=== PATIENT | female | born 1940 | race Caucasian/White ===

== ENCOUNTER → 2018-01-26 | Outpatient (CLI) | payer MEDICARE | LOC: COL.CARD 10:06 | DX: R29.6 Repeated falls (principal); I10 Essential (primary) hypertension; I48.91 Unspecified atrial fibrillation ==

== ENCOUNTER 2018-06-19 13:09 | Inpatient (IN) | payer MEDICARE ==
[~2018-06-19] VITALS: Ht 149.9 cm; Wt 74.5 kg
[2018-06-19] MEDS ORDERED: ELIQUIS 2.5 PO (13:43)
[2018-06-19] MEDS ORDERED: LASIX 20MG TABL20 MG PO (13:43)
[2018-06-19] MEDS ORDERED: EVISTA 60MG60 MG/TAB PO (13:44)
[2018-06-19] MEDS ORDERED: ZESTRIL 20MG TA20 MG PO (13:44)
[2018-06-19] MEDS ORDERED: NORCO 325 MG-51 TAB PO (13:44)
[2018-06-19] MEDS ORDERED: TOPROL XL100 MG PO (13:45)
[2018-06-19] MEDS ORDERED: ASPIRIN 81M81 MG/TA2 PO (13:45)
[2018-06-19] MEDS ORDERED: K-DUR20 MEQ PO (13:46)
[2018-06-19] MEDS ORDERED: CLARITIN 1010 MG/TAB PO (13:46)
[2018-06-19] MEDS ORDERED: MASON NATURAL1200 MG PO (13:46)
[2018-06-19 13:56] LABS: ALBUMIN 4.1 gm/dL (3.5-5.0); BILIRUBIN,TOTAL 0.6 mg/dL (0.0-1.0); CALCIUM 9.1 mg/dL (8.4-10.2); CREATININE, serum 0.68 mg/dL (0.52-1.25); POTASSIUM 3.5 mmol/L (3.4-5.0); TOTAL PROTEIN 7.2 gm/dL (6.4-8.2)
[2018-06-19 14:00] LABS: BASO % 0.4 % (0.0-2.0); EOS # 0.1 (0.0-0.7); EOS % 1.1 % (0-4.0); GRAN # 6.6 (1.4-6.5); GRAN % 73.7 % (42.2-75.2); HEMATOCRIT 37.5 % (37.0-47.0); HEMOGLOBIN 12.4 g/dl (12.5-16.0); LYMPH # 1.4 (1.2-3.4); LYMPH % 15.6 % (20.0-51.0); MEAN CELL VOLUME 97 fl (80.0-100.0); MEAN CORPUSCULAR HEMOGLOBIN 32 pg (27.0-31.0); MEAN CORPUSCULAR HGB CONC 33 g/dl (33.0-37.0); MONO # 0.7 (0.1-0.6); MONO % 8.2 % (1.7-9.3); PLATELET COUNT 192 K/mm3 (130-400); RED BLOOD COUNT 3.88 M/mm3 (4.10-5.30); REDCELL DISTRIBUTION WIDTH-CV 13.3 % (11.5-14.5)
[2018-06-19 14:06] LABS: COLLECTION METHOD CATHETER
[2018-06-19 14:13] LABS: PH 7 (5-8); SQUAMOUS EPITHELIAL None Seen /hpf; URINE APPEARANCE Clear; URINE BACTERIA None Seen /hpf; URINE BILIRUBIN Negative (NEGATIVE); URINE BLOOD Negative (NEGATIVE); URINE COLOR Yellow; URINE GLUCOSE Negative (NEGATIVE); URINE KETONE Negative (NEGATIVE); URINE LEUKOCYTE ESTERASE Negative (NEGATIVE); URINE NITRATE Negative (NEGATIVE); URINE PROTEIN(semi-quant) Negative (NEGATIVE); URINE UROBILINOGEN Negative (NEGATIVE)
[2018-06-19] MEDS ORDERED: MULTI VITAMINS1 TAB PO (14:47)
[2018-06-19 16:12] VITALS: BP 152/84; PULSE 120; TEMP 98.3
[2018-06-19 17:48] LABS: INR 1.1 (0.8-3.0); PROTHROMBIN TIME 12.3 SECONDS (9.7-12.8)
[2018-06-19 18:18] VITALS: BP 152/84; PULSE 122; TEMP 97.6
[2018-06-19 20:00] VITALS: BP 136/72; PULSE 106; TEMP 98.4
[2018-06-20] VITALS (8 sets, daily range): BP systolic 118–152; BP diastolic 56–88; PULSE 90–140; TEMP 98.4–99
[2018-06-20 08:35] LABS: BASO # 0.1 (0.0-0.2); BASO % 0.5 % (0.0-2.0); EOS # 0.1 (0.0-0.7); EOS % 0.9 % (0-4.0); GRAN # 10.9 (1.4-6.5); GRAN % 84.6 % (42.2-75.2); HEMATOCRIT 33.1 % (37.0-47.0); HEMOGLOBIN 11.1 g/dl (12.5-16.0); LYMPH # 0.8 (1.2-3.4); LYMPH % 6.5 % (20.0-51.0); MEAN CELL VOLUME 95 fl (80.0-100.0); MEAN CORPUSCULAR HEMOGLOBIN 32 pg (27.0-31.0); MEAN CORPUSCULAR HGB CONC 34 g/dl (33.0-37.0); MEAN PLATELET VOLUME 9.3 fl (7.4-10.4); MONO # 0.9 (0.1-0.6); MONO % 7.1 % (1.7-9.3); PLATELET COUNT 171 K/mm3 (130-400); RED BLOOD COUNT 3.47 M/mm3 (4.10-5.30); REDCELL DISTRIBUTION WIDTH-CV 12.9 % (11.5-14.5)
[2018-06-20 08:47] LABS: CALCIUM 8.6 mg/dL (8.4-10.2); CREATININE, serum 0.58 mg/dL (0.52-1.25); POTASSIUM 3.5 mmol/L (3.4-5.0)
[2018-06-21] VITALS (12 sets, daily range): BP systolic 82–137; BP diastolic 46–84; PULSE 88–121; TEMP 97.6–100.5
[2018-06-21 08:53] LABS: BASO # 0.1 (0.0-0.2); BASO % 0.3 % (0.0-2.0); EOS # 0.3 (0.0-0.7); EOS % 2.2 % (0-4.0); GRAN # 11.2 (1.4-6.5); GRAN % 78.4 % (42.2-75.2); HEMOGLOBIN 11.3 g/dl (12.5-16.0); LYMPH # 1.3 (1.2-3.4); MEAN CELL VOLUME 96 fl (80.0-100.0); MEAN CORPUSCULAR HEMOGLOBIN 32 pg (27.0-31.0); MEAN CORPUSCULAR HGB CONC 33 g/dl (33.0-37.0); MEAN PLATELET VOLUME 9.7 fl (7.4-10.4); MONO # 1.4 (0.1-0.6); MONO % 9.5 % (1.7-9.3); PLATELET COUNT 162 K/mm3 (130-400); RED BLOOD COUNT 3.53 M/mm3 (4.10-5.30); REDCELL DISTRIBUTION WIDTH-CV 13.1 % (11.5-14.5)
[2018-06-21 08:54] LABS: HEMATOCRIT 33.8 % (37.0-47.0)
[2018-06-21 09:02] LABS: CALCIUM 8.4 mg/dL (8.4-10.2); CREATININE, serum 0.68 mg/dL (0.52-1.25); POTASSIUM 3.3 mmol/L (3.4-5.0)
[2018-06-21 19:40] LABS: COLLECTION METHOD CATHETER
[2018-06-21 19:54] LABS: PH 5 (5-8); SQUAMOUS EPITHELIAL 0-2 /hpf; URINE APPEARANCE Hazy; URINE BACTERIA None Seen /hpf; URINE BILIRUBIN Negative (NEGATIVE); URINE BLOOD 3+ (NEGATIVE); URINE COLOR Amber; URINE GLUCOSE Negative (NEGATIVE); URINE KETONE Negative (NEGATIVE); URINE LEUKOCYTE ESTERASE 2+ (NEGATIVE); URINE NITRATE Negative (NEGATIVE); URINE PROTEIN(semi-quant) 2+ (NEGATIVE); URINE RBC >50 /hpf; URINE UROBILINOGEN Negative (NEGATIVE)
[2018-06-22] VITALS: BP 102/54; PULSE 114; TEMP 98.7
[2018-06-22 04:00] VITALS: BP 108/56; PULSE 108; TEMP 98.2
[2018-06-22 06:56] LABS: BASO # 0.1 (0.0-0.2); BASO % 0.4 % (0.0-2.0); EOS # 0.6 (0.0-0.7); EOS % 4.4 % (0-4.0); GRAN # 10.9 (1.4-6.5); GRAN % 77.4 % (42.2-75.2); HEMATOCRIT 25.3 % (37.0-47.0); HEMOGLOBIN 8.4 g/dl (12.5-16.0); LYMPH # 1.4 (1.2-3.4); LYMPH % 9.9 % (20.0-51.0); MEAN CELL VOLUME 97 fl (80.0-100.0); MEAN CORPUSCULAR HEMOGLOBIN 32 pg (27.0-31.0); MEAN CORPUSCULAR HGB CONC 33 g/dl (33.0-37.0); MEAN PLATELET VOLUME 9.8 fl (7.4-10.4); MONO % 7.2 % (1.7-9.3); PLATELET COUNT 118 K/mm3 (130-400); RED BLOOD COUNT 2.62 M/mm3 (4.10-5.30)
[2018-06-22 07:18] LABS: CALCIUM 7.5 mg/dL (8.4-10.2); CREATININE, serum 0.84 mg/dL (0.52-1.25); POTASSIUM 3.8 mmol/L (3.4-5.0)
[2018-06-22 08:00] VITALS: BP 96/56; PULSE 101; TEMP 99.2
[2018-06-22 12:00] VITALS: BP 103/51; PULSE 101; TEMP 98.8
[2018-06-22 16:20] VITALS: BP 93/48; PULSE 102; TEMP 99.8
[2018-06-22 20:48] VITALS: BP 137/69; PULSE 126; TEMP 100.3
[2018-06-23 00:28] VITALS: BP 101/54; PULSE 106; TEMP 99
[2018-06-23 03:31] VITALS: BP 114/62; PULSE 98; TEMP 97.6
[2018-06-23 08:18] LABS: BASO # 0.1 (0.0-0.2); BASO % 0.4 % (0.0-2.0); EOS # 0.4 (0.0-0.7); EOS % 3.3 % (0-4.0); GRAN # 9.2 (1.4-6.5); GRAN % 72.1 % (42.2-75.2); LYMPH # 1.8 (1.2-3.4); MEAN CELL VOLUME 98 fl (80.0-100.0); MEAN CORPUSCULAR HGB CONC 33 g/dl (33.0-37.0); MEAN PLATELET VOLUME 10.8 fl (7.4-10.4); MONO # 1.2 (0.1-0.6); MONO % 9.5 % (1.7-9.3); PLATELET COUNT 135 K/mm3 (130-400); RED BLOOD COUNT 2.49 M/mm3 (4.10-5.30); REDCELL DISTRIBUTION WIDTH-CV 13.2 % (11.5-14.5)
[2018-06-23 08:19] LABS: HEMATOCRIT 24.3 % (37.0-47.0); HEMOGLOBIN 7.9 g/dl (12.5-16.0); MEAN CORPUSCULAR HEMOGLOBIN 32 pg (27.0-31.0)
[2018-06-23 08:29] LABS: CALCIUM 7.9 mg/dL (8.4-10.2); CREATININE, serum 0.77 mg/dL (0.52-1.25); POTASSIUM 3.8 mmol/L (3.4-5.0)
[2018-06-23 13:39] VITALS: BP 127/69; PULSE 99; TEMP 98.3
[2018-06-23 15:51] VITALS: BP 114/53; PULSE 95; TEMP 97.9
[2018-06-23 21:24] VITALS: BP 113/52; PULSE 98; TEMP 99.1
[2018-06-23 23:04] VITALS: BP 121/90; PULSE 100; TEMP 98.5
[2018-06-24] VITALS (10 sets, daily range): BP systolic 105–141; BP diastolic 53–82; PULSE 86–106; TEMP 97.9–99.2
[2018-06-24 06:39] LABS: BASO % 0.3 % (0.0-2.0); EOS # 0.4 (0.0-0.7); EOS % 3.3 % (0-4.0); GRAN # 8.7 (1.4-6.5); GRAN % 72.5 % (42.2-75.2); HEMATOCRIT 22.8 % (37.0-47.0); HEMOGLOBIN 7.6 g/dl (12.5-16.0); LYMPH # 1.5 (1.2-3.4); LYMPH % 12.2 % (20.0-51.0); MEAN CELL VOLUME 95 fl (80.0-100.0); MEAN CORPUSCULAR HEMOGLOBIN 32 pg (27.0-31.0); MEAN CORPUSCULAR HGB CONC 33 g/dl (33.0-37.0); MEAN PLATELET VOLUME 10.6 fl (7.4-10.4); MONO # 1.3 (0.1-0.6); PLATELET COUNT 164 K/mm3 (130-400); REDCELL DISTRIBUTION WIDTH-CV 12.7 % (11.5-14.5)
[2018-06-24 06:53] LABS: CALCIUM 7.8 mg/dL (8.4-10.2); CREATININE, serum 0.6 mg/dL (0.52-1.25); MAGNESIUM 1.6 mg/dL (1.6-2.3)
[2018-06-24 17:38] LABS: HEMATOCRIT 29.4 % (37.0-47.0)
[2018-06-25] VITALS: BP 121/75; PULSE 76; TEMP 97.5
[2018-06-25 05:29] VITALS: BP 128/64; PULSE 89; TEMP 98.9
[2018-06-25 07:32] LABS: BASO # 0.1 (0.0-0.2); BASO % 0.4 % (0.0-2.0); EOS # 0.4 (0.0-0.7); EOS % 3.4 % (0-4.0); GRAN # 8.7 (1.4-6.5); GRAN % 73.8 % (42.2-75.2); LYMPH # 1.2 (1.2-3.4); MEAN CELL VOLUME 94 fl (80.0-100.0); MEAN CORPUSCULAR HGB CONC 34 g/dl (33.0-37.0); MEAN PLATELET VOLUME 10.2 fl (7.4-10.4); MONO # 1.3 (0.1-0.6); MONO % 11.1 % (1.7-9.3); PLATELET COUNT 197 K/mm3 (130-400); RED BLOOD COUNT 2.77 M/mm3 (4.10-5.30); REDCELL DISTRIBUTION WIDTH-CV 14.4 % (11.5-14.5)
[2018-06-25 07:33] LABS: HEMATOCRIT 25.9 % (37.0-47.0); HEMOGLOBIN 8.7 g/dl (12.5-16.0); MEAN CORPUSCULAR HEMOGLOBIN 31 pg (27.0-31.0)
[2018-06-25 07:46] LABS: CALCIUM 8.1 mg/dL (8.4-10.2); CREATININE, serum 0.57 mg/dL (0.52-1.25)
[2018-06-25 08:24] VITALS: BP 122/72; PULSE 95; TEMP 98.5
[2018-06-25 12:34] VITALS: BP 116/60; PULSE 97; TEMP 98.9
[2018-06-25 16:02] LABS: OSMOLALITY-URINE random 579 Osm/kg (50-1200)
[2018-06-25 16:11] VITALS: BP 111/65; PULSE 106; TEMP 97.7
[2018-06-25 20:00] VITALS: BP 128/80; PULSE 107; TEMP 99.2
[2018-06-25 23:27] LABS: CALCIUM 7.9 mg/dL (8.4-10.2); CREATININE, serum 0.56 mg/dL (0.52-1.25); POTASSIUM 4.1 mmol/L (3.4-5.0)
[2018-06-26] VITALS: BP 134/85; PULSE 102; TEMP 99.7
[2018-06-26 04:56] LABS: CALCIUM 7.8 mg/dL (8.4-10.2); CREATININE, serum 0.58 mg/dL (0.52-1.25); POTASSIUM 3.9 mmol/L (3.4-5.0)
[2018-06-26 05:15] VITALS: BP 126/83; PULSE 93; TEMP 97.9
[2018-06-26 08:00] VITALS: BP 130/64; PULSE 89; TEMP 98.2
[2018-06-26 08:20] LABS: BASO # 0.1 (0.0-0.2); BASO % 0.4 % (0.0-2.0); EOS # 0.5 (0.0-0.7); EOS % 3.9 % (0-4.0); GRAN # 9.8 (1.4-6.5); GRAN % 71.1 % (42.2-75.2); LYMPH # 1.8 (1.2-3.4); LYMPH % 12.7 % (20.0-51.0); MEAN CELL VOLUME 93 fl (80.0-100.0); MEAN CORPUSCULAR HGB CONC 34 g/dl (33.0-37.0); MEAN PLATELET VOLUME 10.6 fl (7.4-10.4); MONO # 1.4 (0.1-0.6); MONO % 10.1 % (1.7-9.3); PLATELET COUNT 221 K/mm3 (130-400); RED BLOOD COUNT 2.56 M/mm3 (4.10-5.30); REDCELL DISTRIBUTION WIDTH-CV 14.2 % (11.5-14.5)
[2018-06-26 08:23] LABS: HEMATOCRIT 23.8 % (37.0-47.0); MEAN CORPUSCULAR HEMOGLOBIN 31 pg (27.0-31.0)
[2018-06-26 12:19] VITALS: BP 108/72; PULSE 118; TEMP 98
[2018-06-26 16:34] VITALS: BP 112/69; PULSE 102; TEMP 98.7
[2018-06-26 20:31] VITALS: BP 147/83; PULSE 95; TEMP 98.8
[2018-06-27 00:32] VITALS: BP 151/92; PULSE 92; TEMP 97.5
[2018-06-27 04:54] VITALS: BP 165/84; PULSE 115; TEMP 98.2
[2018-06-27 07:12] LABS: MEAN CELL VOLUME 97 fl (80.0-100.0); MEAN CORPUSCULAR HGB CONC 33 g/dl (33.0-37.0); PLATELET COUNT 278 K/mm3 (130-400); RED BLOOD COUNT 2.75 M/mm3 (4.10-5.30); REDCELL DISTRIBUTION WIDTH-CV 14.5 % (11.5-14.5)
[2018-06-27 07:17] LABS: HEMATOCRIT 26.6 % (37.0-47.0); HEMOGLOBIN 8.7 g/dl (12.5-16.0); MEAN CORPUSCULAR HEMOGLOBIN 32 pg (27.0-31.0)
[2018-06-27 07:18] LABS: CALCIUM 8.2 mg/dL (8.4-10.2); CREATININE, serum 0.52 mg/dL (0.52-1.25); POTASSIUM 4.2 mmol/L (3.4-5.0)
[2018-06-27 08:23] VITALS: BP 131/69; PULSE 100; TEMP 98
[2018-06-27 09:38] LABS: BAND 4 % (0-10); BASOPHIL 1 % (0-2); LYMPHOCYTE 8 % (20.0-51.0); NEUTROPHILS 84 % (42.0-75.2); PLATELET ESTIMATE NORMAL (NORMAL)
[2018-06-27 12:51] VITALS: BP 143/87; PULSE 89; TEMP 98.2
[2018-06-27 15:57] VITALS: BP 131/79; PULSE 102; TEMP 97.8
[2018-06-27 16:25] LABS: COLLECTION METHOD CLEAN CATCH
[2018-06-27 16:32] LABS: MUCOUS Present /lpf; PH 5 (5-8); URINE APPEARANCE Hazy; URINE BACTERIA Rare /hpf; URINE BILIRUBIN Negative (NEGATIVE); URINE BLOOD Negative (NEGATIVE); URINE COLOR Amber; URINE GLUCOSE Negative (NEGATIVE); URINE KETONE Negative (NEGATIVE); URINE LEUKOCYTE ESTERASE Negative (NEGATIVE); URINE NITRATE Negative (NEGATIVE); URINE PROTEIN(semi-quant) 1+ (NEGATIVE); URINE UROBILINOGEN >=4.0 mg/dL (NEGATIVE)
[2018-06-27 20:25] VITALS: BP 114/64; PULSE 93; TEMP 98.9
[2018-06-28 04:50] VITALS: BP 121/71; PULSE 90; TEMP 97.8
[2018-06-28 07:23] VITALS: BP 152/75; PULSE 93; TEMP 98.2
[2018-06-28 07:32] LABS: MEAN CELL VOLUME 99 fl (80.0-100.0); MEAN CORPUSCULAR HGB CONC 32 g/dl (33.0-37.0); MEAN PLATELET VOLUME 9.5 fl (7.4-10.4); PLATELET COUNT 326 K/mm3 (130-400); RED BLOOD COUNT 2.73 M/mm3 (4.10-5.30); REDCELL DISTRIBUTION WIDTH-CV 14.8 % (11.5-14.5)
[2018-06-28 07:33] LABS: HEMATOCRIT 27.1 % (37.0-47.0); HEMOGLOBIN 8.6 g/dl (12.5-16.0); MEAN CORPUSCULAR HEMOGLOBIN 32 pg (27.0-31.0)
[2018-06-28 07:37] LABS: CALCIUM 8.3 mg/dL (8.4-10.2); CREATININE, serum 0.55 mg/dL (0.52-1.25); POTASSIUM 4.2 mmol/L (3.4-5.0)
[2018-06-28 09:08] LABS: BAND 10 % (0-10); LYMPHOCYTE 15 % (20.0-51.0); NEUTROPHILS 67 % (42.0-75.2); NUCLEATED RED BLOOD CELL 1 (0-6); PLATELET ESTIMATE NORMAL (NORMAL)
[2018-06-28] MEDS ORDERED: IPRATROPIUM BROM3 M1 IH (10:26)
[2018-06-28 12:13] VITALS: BP 152/75; PULSE 93; TEMP 98.2
[2018-06-28] MEDS ORDERED: NORCO 325 MG-51 TAB PO (12:36)
== END 2018-06-28 14:29 | DRG 481 ==
LOC: COL.ER 13:09 → SURG 13:51
PROVIDERS: Family Medicine; Hospitalist; Nurse Practitioner; Nurse Practitioner Family; Orthopaedic Surgery; Physician Assistant
PROC: 0QH706Z Insertion of Intramedullary Internal Fixation Device into Left Upper Femur, Open Approach (ICD-10-PCS; principal; 2018-06-21 08:00)
DX: S72.142A Displaced intertrochanteric fracture of left femur, initial encounter for closed fracture (principal); D62 Acute posthemorrhagic anemia; E87.1 Hypo-osmolality and hyponatremia; E87.3 Alkalosis; N39.0 Urinary tract infection, site not specified; W18.30XA Fall on same level, unspecified, initial encounter; I10 Essential (primary) hypertension; E87.6 Hypokalemia; I48.2 Chronic atrial fibrillation; G47.419 Narcolepsy without cataplexy; Z79.01 Long term (current) use of anticoagulants; B95.2 Enterococcus as the cause of diseases classified elsewhere
CPT/HCPCS: 99232-AI; 99233-AI; 99239; A9284; C1713; J0690; J0696; J0744; J1650; J1885; J1940; J2270; J2704; J3010; J3475; J7030; J7120; P9016

== ENCOUNTER → 2018-08-17 | Outpatient (CLI) | payer MEDICARE ==
[~2018-08-17] MED LIST: ASPIRIN 81M81 MG/TA2 PO; CLARITIN 1010 MG/TAB PO; ELIQUIS 2.5 PO; EVISTA 60MG60 MG/TAB PO; IPRATROPIUM BROM3 M1 IH; K-DUR20 MEQ PO; LASIX 20MG TABL20 MG PO; MASON NATURAL1200 MG PO; MULTI VITAMINS1 TAB PO; NORCO 325 MG-51 TAB PO; TOPROL XL100 MG PO; ZESTRIL 20MG TA20 MG PO
== END ==
LOC: COL.RAD 14:57
DX: S00.83XD Contusion of other part of head, subsequent encounter (principal)

== ENCOUNTER → 2018-08-22 | Outpatient (REF) | LOC: ZCOL.LAB 14:36 | DX: I48.2 Chronic atrial fibrillation (principal) ==

== ENCOUNTER → 2018-09-15 | Outpatient (CLI) | payer MEDICARE ==
[2018-09-15 14:38] LABS: CALCIUM 8.9 mg/dL (8.4-10.2); CREATININE, serum 0.93 mg/dL (0.52-1.25); POTASSIUM 3.5 mmol/L (3.4-5.0)
[2018-09-15 14:41] LABS: DIGOXIN 0.9 ng/mL (0.8-2.0)
== END ==
LOC: ZCOL.LAB 14:00
PROVIDERS: Internal Medicine
DX: I48.2 Chronic atrial fibrillation (principal)

== ENCOUNTER → 2019-03-18 | Outpatient (CLI) | payer MEDICARE ==
[2019-03-18 16:28] LABS: BASO % 0.3 % (0.0-2.0); EOS # 0.1 (0.0-0.7); GRAN # 10.2 (1.4-6.5); GRAN % 76.8 % (42.2-75.2); HEMATOCRIT 37.4 % (37.0-47.0); HEMOGLOBIN 12.2 g/dl (12.5-16.0); LYMPH # 1.9 (1.2-3.4); LYMPH % 14.5 % (20.0-51.0); MEAN CELL VOLUME 97 fl (80.0-100.0); MEAN CORPUSCULAR HEMOGLOBIN 32 pg (27.0-31.0); MEAN CORPUSCULAR HGB CONC 33 g/dl (33.0-37.0); MEAN PLATELET VOLUME 9.9 fl (7.4-10.4); MONO # 0.9 (0.1-0.6); MONO % 6.9 % (1.7-9.3); PLATELET COUNT 258 K/mm3 (130-400); RED BLOOD COUNT 3.85 M/mm3 (4.10-5.30); REDCELL DISTRIBUTION WIDTH-CV 13.3 % (11.5-14.5)
[2019-03-18 16:33] LABS: ALBUMIN 4.2 gm/dL (3.5-5.0); BILIRUBIN,TOTAL 0.4 mg/dL (0.0-1.0); CALCIUM 9.9 mg/dL (8.4-10.2); CREATININE, serum 1.43 (0.52-1.25); POTASSIUM 4.2 mmol/L (3.4-5.0); TOTAL PROTEIN 7.4 gm/dL (6.4-8.2)
[2019-03-18 16:48] LABS: ERYTHROCYTE SEDIMENTATION RATE 22 mm/hr (0-30)
== END ==
LOC: ZCOL.LAB 15:54
PROVIDERS: Nurse Practitioner Family
DX: R63.4 Abnormal weight loss (principal)

== ENCOUNTER 2020-08-21 16:33 | Inpatient (IN) | payer MEDICARE ==
[~2020-08-21] VITALS: Ht 149.9 cm; Wt 60.7 kg
[~2020-08-21 16:33] MED LIST changes: +DAILY MULTIPLE1 T18 PO; -MULTI VITAMINS1 TAB PO
[2020-08-21 17:49] LABS: BASO % 0.3 % (0.0-2.0); EOS # 0.1 (0.0-0.7); EOS % 0.4 % (0-4.0); GRAN # 13.1 (1.4-6.5); GRAN % 83.7 % (42.2-75.2); HEMATOCRIT 38.9 % (37.0-47.0); HEMOGLOBIN 12.6 g/dl (12.5-16.0); LYMPH # 1.5 (1.2-3.4); LYMPH % 9.5 % (20.0-51.0); MEAN CELL VOLUME 98 fl (80.0-100.0); MEAN CORPUSCULAR HEMOGLOBIN 32 pg (27.0-31.0); MEAN CORPUSCULAR HGB CONC 32 g/dl (33.0-37.0); MEAN PLATELET VOLUME 9.4 fl (7.4-10.4); MONO # 0.8 (0.1-0.6); MONO % 4.8 % (1.7-9.3); PLATELET COUNT 219 K/mm3 (130-400); RED BLOOD COUNT 3.97 M/mm3 (4.10-5.30); REDCELL DISTRIBUTION WIDTH-CV 13.2 % (11.5-14.5)
[2020-08-21 17:58] LABS: ALBUMIN 4.5 gm/dL (3.5-5.0); BILIRUBIN,TOTAL 0.5 mg/dL (0.0-1.0); CALCIUM 9.4 mg/dL (8.4-10.2); CREATININE, serum 0.95 (0.52-1.25); POTASSIUM 4.3 mmol/L (3.4-5.0); TOTAL PROTEIN 7.9 gm/dL (6.4-8.2)
[2020-08-21] MEDS ORDERED: NORCO 325 MG-51 TAB PO ×3 (18:14→19:42)
[2020-08-21] MEDS ORDERED: TYLENOL 500MG500 MG PO (19:26)
[2020-08-21] MEDS ORDERED: GENTLE LAXATIVE10 MG RC (19:31)
[2020-08-21] MEDS ORDERED: BLINK TEARS15 ML OP (19:32)
[2020-08-21] MEDS ORDERED: LANOXIN 0.120.125 MG PO (19:34)
[2020-08-21] MEDS ORDERED: ELIQUIS 5MG PO (19:35)
[2020-08-21] MEDS ORDERED: LASIX 40MG TABL40 MG PO (19:37)
[2020-08-21] MEDS ORDERED: ZESTRIL 10MG10 MG PO (19:38)
[2020-08-21 20:04] LABS: TROPONIN-I < 0.012 ng/mL (0.000-0.035)
[2020-08-21 22:18] VITALS: BP 138/94; PULSE 100; TEMP 98.3
[2020-08-22] VITALS (7 sets, daily range): BP systolic 95–145; BP diastolic 38–79; PULSE 69–92; TEMP 97.5–99.1
[2020-08-22] MEDS ORDERED: AQUAPHOR BABY HEA41% TP (02:39)
[2020-08-22] MEDS ORDERED: BETAMETHASONE VA0.1% TP (02:41)
[2020-08-22] MEDS ORDERED: IMODIUM 2MG CAPS2 MG PO (02:44)
[2020-08-22] MEDS ORDERED: GOOD NEIGH1200 MG/15 PO (02:49)
[2020-08-22] MEDS ORDERED: MYLANTA 150 ML150 M1 PO (02:51)
[2020-08-22] MEDS ORDERED: NYSTATIN100000 U/1 TOP (02:54)
[2020-08-22] MEDS ORDERED: REMERON 15M15 MG/TA1 PO (02:56)
[2020-08-22] MEDS ORDERED: ALDACTONE 25MG25 M1 PO (02:57)
[2020-08-22] MEDS ORDERED: SYSTANE BALANCE10 M1 OP (02:59)
[2020-08-22] MEDS ORDERED: ZOFRAN ODT4 MG PO (03:00)
--- NOTE | 2020-08-22 05:05 | NUR ---
Patient admitted from ED via stretcher. Able to stand and ambulate with stand-by assist and a walker. Noted to have a limping, but steady gait. States more pain in left hip than in her right. Patient states her pain is minimal when she is sitting still, but it increases significantly when she gets up to ambulate. Patient denies the need for pain medication so far being on this floor. Edema noted to bilateral lower legs. Patient continues on neuros. Within normal limits. Med rec completed from paperwork sent from susan. 5 page completed. Urine specimen still needed d/t contamination of two voids. Will continue to monitor.
[2020-08-22 05:39] LABS: BASO # 0.1 (0.0-0.2); BASO % 0.3 % (0.0-2.0); EOS # 0.2 (0.0-0.7); EOS % 0.7 % (0-4.0); GRAN # 18.8 (1.4-6.5); GRAN % 86.4 % (42.2-75.2); HEMOGLOBIN 11.4 g/dl (12.5-16.0); LYMPH # 1.5 (1.2-3.4); LYMPH % 6.8 % (20.0-51.0); MEAN CELL VOLUME 98 fl (80.0-100.0); MEAN CORPUSCULAR HEMOGLOBIN 32 pg (27.0-31.0); MEAN CORPUSCULAR HGB CONC 33 g/dl (33.0-37.0); MEAN PLATELET VOLUME 9.7 fl (7.4-10.4); MONO # 1.1 (0.1-0.6); MONO % 5.2 % (1.7-9.3); PLATELET COUNT 202 K/mm3 (130-400); RED BLOOD COUNT 3.55 M/mm3 (4.10-5.30); REDCELL DISTRIBUTION WIDTH-CV 13.4 % (11.5-14.5)
[2020-08-22 05:42] LABS: HEMATOCRIT 34.6 % (37.0-47.0)
[2020-08-22 05:50] LABS: CALCIUM 9.4 mg/dL (8.4-10.2); CREATININE, serum 0.92 (0.52-1.25); POTASSIUM 4.2 mmol/L (3.4-5.0)
[2020-08-22 06:15] LABS: COLLECTION METHOD CATHETER
[2020-08-22 06:54] LABS: MUCOUS Present /lpf; PH 5 (5-8); URINE APPEARANCE Hazy; URINE BACTERIA None Seen /hpf; URINE BILIRUBIN Negative (NEGATIVE); URINE BLOOD 1+ (NEGATIVE); URINE COLOR Yellow; URINE GLUCOSE Negative (NEGATIVE); URINE KETONE Negative (NEGATIVE); URINE LEUKOCYTE ESTERASE Negative (NEGATIVE); URINE NITRATE Negative (NEGATIVE); URINE PROTEIN(semi-quant) 1+ (NEGATIVE); URINE UROBILINOGEN Negative (NEGATIVE)
--- NOTE | 2020-08-22 07:06 | NUR ---
Dr. Rosenbaum notified of critical WBC count. UA collected and sent to lab. Ordered to talk to day shift about possible antibiotics. Reported off to BALBIR Elkins.
--- NOTE | 2020-08-22 07:30 | NUR ---
Shift assessment completed. Patient was ambulating to bathroom with slight dyspnea and had minimal complaints of pain from pelvic fracture. Pt has stable gait with x1 stand by assist.
--- NOTE | 2020-08-22 10:38 | NUR ---
Initial visit; Patient thanked Warehouse Freight Handler for looking in on her and offering comfort and prayer. Warehouse Freight Handler will follow up while patient is here.
--- NOTE | 2020-08-22 10:58 | NUR ---
AGREE WITH STUDENTS ASSESSMENTS OF THIS PATIENT.
--- NOTE | 2020-08-22 16:47 | NUR ---
Social Problems Specialist met with the patient to complete initial intake. The patient lives at [facility] in assisted living. The patient has walker and receives some assistance with ADLs. The patient's PCP is Dr. Pak and patient receives medications from [facility]. The patient has general POA in the EMR. She does not have DPOA-HC in the EMR but states they are complete and designates [facility] in [place]. The patient will likely return to [facility] for a stay at [facility] before returning to assisted living. MIRA faxed referral to Natacha. MIRA contacted Natacha regarding the referral and to inquire about DPOA-HC paperwork. She will fax it if they have it. MIRA collaborated the above information with the patient's nurse.
[2020-08-23 03:22] VITALS: BP 97/79; PULSE 97; TEMP 98.8
--- NOTE | 2020-08-23 04:21 | NUR ---
Patient has rested well throughout the night. Requires assistance x1 staff memeber and walker to ambulate to the bathroom. States her pain is high when she is up walking, but states she is fine when sitting down. Patient denies the need for pain medication. Patient states she prefers to sleep in the recliner because it is more comfortable for her. Medications taken whole with water. Alert and oriented. Noted to have good output. Education provided on the importance of her drinking fluids, as patient states she doesn't want to drink a lot because she doesn't want to get up a lot to use the restroom. Will continue to monitor patient.
[2020-08-23 06:31] LABS: BASO # 0.1 (0.0-0.2); BASO % 0.4 % (0.0-2.0); EOS # 0.3 (0.0-0.7); EOS % 1.2 % (0-4.0); GRAN # 17.8 (1.4-6.5); HEMOGLOBIN 10.6 g/dl (12.5-16.0); LYMPH % 9.1 % (20.0-51.0); MEAN CELL VOLUME 97 fl (80.0-100.0); MEAN CORPUSCULAR HEMOGLOBIN 32 pg (27.0-31.0); MEAN CORPUSCULAR HGB CONC 33 g/dl (33.0-37.0); MEAN PLATELET VOLUME 9.6 fl (7.4-10.4); MONO # 1.2 (0.1-0.6); MONO % 5.7 % (1.7-9.3); PLATELET COUNT 168 K/mm3 (130-400); RED BLOOD COUNT 3.28 M/mm3 (4.10-5.30); REDCELL DISTRIBUTION WIDTH-CV 13.4 % (11.5-14.5)
[2020-08-23 06:45] LABS: CALCIUM 9.2 mg/dL (8.4-10.2); CREATININE, serum 1.22 (0.52-1.25); MAGNESIUM 1.6 mg/dL (1.6-2.3); POTASSIUM 4.5 mmol/L (3.4-5.0)
[2020-08-23 06:53] LABS: HEMATOCRIT 31.7 % (37.0-47.0)
[2020-08-23 07:21] VITALS: BP 107/50; PULSE 89; TEMP 98.5
[2020-08-23 10:53] VITALS: BP 116/56; PULSE 94; TEMP 97.8
--- NOTE | 2020-08-23 11:14 | NUR ---
Security Technician contacted Natacha at [facility] and faxed updates. Natacha advised they are able to accept patient for skilled stay. SW will continue to follow.
--- NOTE | 2020-08-23 13:34 | NUR ---
PT RESTING QUIETLY IN RECLINER DENIES NEEDS.
[2020-08-23 16:23] VITALS: BP 105/46; PULSE 74; TEMP 98.6
[2020-08-23 19:20] VITALS: BP 121/65; PULSE 77; TEMP 98.4
[2020-08-23 23:29] VITALS: BP 113/49; PULSE 78; TEMP 98
[2020-08-24 04:00] VITALS: BP 115/49; PULSE 81; TEMP 97.9
--- NOTE | 2020-08-24 04:49 | NUR ---
Pt is currently sitting up in her chair. This is where pt has slept all night. Pt did state that she slept there for two nights because this position is comfortable for her. Pt has ambulated to the restroom several times tonight. Pt ambulate slow but she does well. Pt is currently back in the chair and has her call light within reach.
[2020-08-24 06:05] LABS: BASO # 0.1 (0.0-0.2); BASO % 0.5 % (0.0-2.0); EOS # 0.5 (0.0-0.7); EOS % 2.5 % (0-4.0); GRAN # 13.6 (1.4-6.5); GRAN % 77.2 % (42.2-75.2); LYMPH # 2.1 (1.2-3.4); MEAN CELL VOLUME 97 fl (80.0-100.0); MEAN CORPUSCULAR HGB CONC 33 g/dl (33.0-37.0); MEAN PLATELET VOLUME 10.1 fl (7.4-10.4); MONO # 1.3 (0.1-0.6); MONO % 7.1 % (1.7-9.3); PLATELET COUNT 145 K/mm3 (130-400); REDCELL DISTRIBUTION WIDTH-CV 13.5 % (11.5-14.5)
[2020-08-24 06:10] LABS: HEMATOCRIT 27.2 % (37.0-47.0); MEAN CORPUSCULAR HEMOGLOBIN 32 pg (27.0-31.0)
--- NOTE | 2020-08-24 06:15 | NUR ---
Pt has had a good night. Pt has ambulated to the restroom several times pt has her call light within reach. She has only requested pain medication once during the night and she stated that the [place] really helped with her pain . Pt has her call light within reach and she is currently in her chair.
[2020-08-24 06:21] LABS: CALCIUM 8.6 mg/dL (8.4-10.2); CREATININE, serum 1.02 (0.52-1.25); POTASSIUM 4.8 mmol/L (3.4-5.0)
[2020-08-24 08:00] VITALS: BP 102/53; PULSE 76; TEMP 98.2
[2020-08-24 10:04] VITALS: BP 102/53; PULSE 76; TEMP 98.2
--- NOTE | 2020-08-24 11:20 | NUR ---
Patient alert and oriented, answers questions appropriately. See assessment. 2+ edema noted to BLE, pulses 1+. Gait slow and steady. No c/o at this time.
[2020-08-24 12:50] VITALS: BP 114/51; PULSE 76; TEMP 98
--- NOTE | 2020-08-24 13:37 | NUR ---
[employer] Division Director faxed clinical updates to Natacha at [facility]. SW will continue to follow.
[2020-08-24 15:49] VITALS: BP 118/72; PULSE 80; TEMP 98.8
[2020-08-24 16:50] LABS: HEMOGLOBIN 8.6 g/dl (12.5-16.0)
[2020-08-24 19:46] VITALS: BP 131/79; PULSE 95; TEMP 97.8
--- NOTE | 2020-08-24 20:30 | NUR ---
PT UP IN CHAIR AT BEDSIDE. DOES NOT WANT LEGS ELEVATED, EVEN THOUGH SHE HAS BILATERAL LOWER LEG SWELLING. HAS RASHY AREA TO LEFT LOWER LEG, BETAMETHASONE CR APPLIED. HAS BRUISE TO ABDOMEN AND ONE SMALL BRUISE TO EACH BUTTOCK CHEEK. IS ALERT AND ORIENTED X4. SL TO LEFT WRIST FLUSHES WELL, BRUISED RT HAND FROM IV AND LAB STICKS.
[2020-08-25 00:04] VITALS: BP 121/65; PULSE 71; TEMP 97.8
--- NOTE | 2020-08-25 00:22 | NUR ---
TO BATHROOM THEN TO BED FOR THE NIGHT.
[2020-08-25 04:00] VITALS: BP 132/52; PULSE 74; TEMP 98.6
--- NOTE | 2020-08-25 05:32 | NUR ---
PT COMPLAINS OF PAIN TO HER BUTTOCKS. MEDICATED WITH NORCO 1 TAB NOW. TRIED REPOSITIONING, SITTING ON PILLOW AND LAYING IN BED TO RELIEVE PAIN.
[2020-08-25 07:15] LABS: BASO # 0.1 (0.0-0.2); BASO % 0.4 % (0.0-2.0); EOS # 0.3 (0.0-0.7); EOS % 1.8 % (0-4.0); GRAN # 13.5 (1.4-6.5); GRAN % 79.1 % (42.2-75.2); LYMPH # 1.9 (1.2-3.4); LYMPH % 11.1 % (20.0-51.0); MEAN CELL VOLUME 99 fl (80.0-100.0); MEAN CORPUSCULAR HGB CONC 33 g/dl (33.0-37.0); MEAN PLATELET VOLUME 10.2 fl (7.4-10.4); MONO # 1.2 (0.1-0.6); MONO % 6.9 % (1.7-9.3); PLATELET COUNT 161 K/mm3 (130-400); RED BLOOD COUNT 2.71 M/mm3 (4.10-5.30); REDCELL DISTRIBUTION WIDTH-CV 13.4 % (11.5-14.5)
[2020-08-25 07:20] LABS: HEMATOCRIT 26.8 % (37.0-47.0); HEMOGLOBIN 8.7 g/dl (12.5-16.0); MEAN CORPUSCULAR HEMOGLOBIN 32 pg (27.0-31.0)
[2020-08-25 07:24] LABS: CALCIUM 8.9 mg/dL (8.4-10.2); CREATININE, serum 0.88 (0.52-1.25); POTASSIUM 4.3 mmol/L (3.4-5.0)
[2020-08-25 07:35] VITALS: BP 103/46; PULSE 75; TEMP 98.7
--- NOTE | 2020-08-25 09:05 | NUR ---
PT UP IN RECLINER AFTER USING BR WITH SBA X1. [place]. NEW ORDERS RECIEVED. PT NOW ON FREE WATER RESTRICTED. TELE DISCONTINUED. PT HAS BEEN APPROVED FOR REHAB TO [facility] . WATCHING WBC PLAN ON DISCHARGE MAYBE TOMORROW.
--- NOTE | 2020-08-25 11:03 | NUR ---
Data Developer met with patient to review discharge plan, which is to discharge to [facility]. Patient is in agreement with this plan. SW was contacted by [facility] and was advised that they have authorized SNF stay for patient (auth #[id number]). MIRA contacted Natacha at [facility] and faxed clinical updates. Patient's COVID test is still pending. SW will continue to follow.
[2020-08-25 12:14] VITALS: BP 103/64; PULSE 64; TEMP 98.7
--- NOTE | 2020-08-25 15:48 | NUR ---
REPORT TO LENA MCGREGOR.
[2020-08-25 16:20] VITALS: BP 111/55; PULSE 82; TEMP 98.5
--- NOTE | 2020-08-25 17:53 | NUR ---
Resumed care after lynsey this afternoon. Patient resting in chair. Was not interested in her dinner tray. We assessed her and noted lower extremity edema and redness, which is chronic. Encouraged patient to elevate lower extremeties, patient declined. Repositioned patient with pillows behind her in chair to make her more comfortable.
--- NOTE | 2020-08-25 20:07 | NUR ---
PT UP IN CHAIR AT BEDSIDE. REPORTS PAIN TO BUTTOCKS, BUT IS UNCOMFORTABLE LAYING IN THE BED. CURRENTLY SITTING ON A PILLOW IN THE CHAIR. ASSISTED TO BATHROOM, VOIDS AND BACK TO CHAIR. TAKES HS MEDS INCLUDING NORCO FOR PAIN. NOTED BRUISING TO LEFT BUTTOCK HAS EXTENDED TO LEFT HIP AND HAS GOTTEN LARGER. ABDOMINAL BRUISING DARK PURPLE AND NOTED BRUISING TO INNER LEFT THIGH. APPLIED BETAMETHASONE OINTMENT TO LEFT LOWER LEG FOR RASHY AREA. REFUSES ALO PALM.
[2020-08-25 20:15] VITALS: BP 144/61; PULSE 82; TEMP 98.5
[2020-08-26] VITALS (7 sets, daily range): BP systolic 115–140; BP diastolic 47–64; PULSE 75–89; TEMP 98.2–98.7
--- NOTE | 2020-08-26 03:44 | NUR ---
Remains up in chair, refuses to have legs elevated. Poor sleep noted.
--- NOTE | 2020-08-26 04:08 | NUR ---
Asking for something for sinus problem, reports nasal passages are dry and has scant blood when blowing nose. ABatulit SHOWER DOORS AND PANELS FABRICATOR orders Craig Nasal spray.
--- NOTE | 2020-08-26 04:50 | NUR ---
MEDICATED WITH NORCO 1 TAB FOR PAIN TO BUTTOCKS. USES OCEAN NASAL SPRAY FOR DRY NARES.
[2020-08-26 07:39] LABS: MEAN CELL VOLUME 96 fl (80.0-100.0); MEAN CORPUSCULAR HGB CONC 33 g/dl (33.0-37.0); MEAN PLATELET VOLUME 10.2 fl (7.4-10.4); PLATELET COUNT 188 K/mm3 (130-400); RED BLOOD COUNT 2.67 M/mm3 (4.10-5.30); REDCELL DISTRIBUTION WIDTH-CV 13.3 % (11.5-14.5)
[2020-08-26 07:43] LABS: HEMATOCRIT 25.7 % (37.0-47.0); HEMOGLOBIN 8.5 g/dl (12.5-16.0); MEAN CORPUSCULAR HEMOGLOBIN 32 pg (27.0-31.0)
[2020-08-26 08:28] LABS: BAND 7 % (0-10); EOSINOPHIL 2 % (0-4); LYMPHOCYTE 13 % (20.0-51.0); NEUTROPHILS 68 % (42.0-75.2); PLATELET ESTIMATE NORMAL (NORMAL)
[2020-08-26 08:46] LABS: CREATININE, serum 0.78 (0.52-1.25); POTASSIUM 4.4 mmol/L (3.4-5.0)
--- NOTE | 2020-08-26 10:57 | NUR ---
SW was informed by nurse and physician team that patient would not be dcing today 08-26-2020. Tentative DC tomorrow 08-27-2020. MIRA contacted [facility] staff to inform about patient states. MIRA will continue to follow.
--- NOTE | 2020-08-26 19:13 | NUR ---
Patient resting in bedside recliner at this time. Patient remains alert and oriented, answers questions appropriately. Patient 1x assist to bathroom, ambulates well with walker and gaitbelt. Patient denies needs at this time, call light within reach.
--- NOTE | 2020-08-26 20:30 | NUR ---
PT IN CHAIR AT BEDSIDE. ASSISTED TO BATHROOM, VOIDS AND BACK TO CHAIR.BRUISING TO LEFT BUTTOCK EXTENDS TO LEFT HIP, LEFT INNER THIGH AND LOWER ABDOMEN. REPORTS PAIN TO BUTTOCK WHEN SITTING, WILL NOT LAY IN THE BED OR ELEVATE HER LEGS IN THE CHAIR. HAS 2+PITTING EDEMA TO LOWER LEGS. RASHY AREA TO LLE, BETAMETHASONE APPLIED BID. HAS LEFT FOOT ORTHO SHOE ON FOR FX 3RD TOE. PT IS ALERT AND ORIENTED. HAS SL TO LEFT WRIST, FLUSHES WELL.
--- NOTE | 2020-08-27 01:28 | NUR ---
MEDICATED WITH NORCO 1 TAB FOR PAIN TO BUTTOCK.
[2020-08-27 03:36] VITALS: BP 107/53; PULSE 110; TEMP 98.1
--- NOTE | 2020-08-27 04:55 | NUR ---
REPORTS PAIN MED TAKES SOME OF THE EDGE OFF THE PAIN IN HER BUTTOCKS.
[2020-08-27 06:45] LABS: MEAN CELL VOLUME 96 fl (80.0-100.0); MEAN CORPUSCULAR HGB CONC 34 g/dl (33.0-37.0); MEAN PLATELET VOLUME 9.9 fl (7.4-10.4); PLATELET COUNT 197 K/mm3 (130-400); RED BLOOD COUNT 2.63 M/mm3 (4.10-5.30); REDCELL DISTRIBUTION WIDTH-CV 13.5 % (11.5-14.5)
[2020-08-27 06:54] LABS: HEMATOCRIT 25.2 % (37.0-47.0); HEMOGLOBIN 8.5 g/dl (12.5-16.0); MEAN CORPUSCULAR HEMOGLOBIN 32 pg (27.0-31.0)
[2020-08-27 06:58] LABS: CALCIUM 8.8 mg/dL (8.4-10.2); CREATININE, serum 0.85 (0.52-1.25); POTASSIUM 4.1 mmol/L (3.4-5.0)
[2020-08-27 09:02] VITALS: BP 114/52; PULSE 84; TEMP 98.1
--- NOTE | 2020-08-27 10:22 | NUR ---
Patient resting in bedside recliner at this time. Patient remains alert and oriented, answers questions appropriately. Patient 1x assist with walker and gaitbelt to and from bathroom, patient is able to preform david care independently. Patient reports that pain is well controlled, bruising on abdomen, buttocks, and legs still present from fall. Patient denies needs at this time, call light within reach.
[2020-08-27 10:26] LABS: BAND 1 % (0-10); LYMPHOCYTE 14 % (20.0-51.0); NEUTROPHILS 81 % (42.0-75.2); PLATELET ESTIMATE NORMAL (NORMAL)
[2020-08-27 12:02] VITALS: BP 116/63; PULSE 67; TEMP 97.8
--- NOTE | 2020-08-27 13:27 | NUR ---
SW contacted surgical station to inquire about patient being discharged today. SW was informed that patient would not be discharged.
[2020-08-27 15:32] VITALS: BP 111/54; PULSE 101; TEMP 98
--- NOTE | 2020-08-27 18:51 | NUR ---
Patient resting in bedside recliner per her prefrence. Patient has been up to bathroom several times today with walker and 1x assist where she was continent of urine. Administered PRN pain medication per patient request, denies needs at this time, call light within reach.
[2020-08-27 19:47] VITALS: BP 115/87; PULSE 82; TEMP 98.3
--- NOTE | 2020-08-27 22:00 | NUR ---
Patient resting in recliner; alert and oriented and in no distress. Offered to assist patient to bed but patient declined. Reported being more "comfortable" sleeping in a chair. Also declined offer to elevate legs despite +3 edema. Explained that this would assist with reducing edema but patient still refused. Call light left within reach; will continue to monitor.
[2020-08-27 23:39] VITALS: BP 123/94; PULSE 73; TEMP 98.6
[2020-08-28 03:44] VITALS: BP 135/71; PULSE 74; TEMP 97.5
[2020-08-28 07:09] LABS: MEAN CELL VOLUME 96 fl (80.0-100.0); MEAN CORPUSCULAR HGB CONC 34 g/dl (33.0-37.0); PLATELET COUNT 239 K/mm3 (130-400); RED BLOOD COUNT 2.79 M/mm3 (4.10-5.30); REDCELL DISTRIBUTION WIDTH-CV 13.6 % (11.5-14.5)
[2020-08-28 07:10] LABS: HEMATOCRIT 26.9 % (37.0-47.0); MEAN CORPUSCULAR HEMOGLOBIN 32 pg (27.0-31.0)
[2020-08-28 07:20] LABS: CALCIUM 9.2 mg/dL (8.4-10.2); CREATININE, serum 0.83 (0.52-1.25); POTASSIUM 4.3 mmol/L (3.4-5.0)
[2020-08-28 07:47] LABS: BAND 3 % (0-10); LYMPHOCYTE 11 % (20.0-51.0); NEUTROPHILS 80 % (42.0-75.2); PLATELET ESTIMATE NORMAL (NORMAL)
[2020-08-28 08:15] VITALS: BP 117/48; PULSE 84; TEMP 97.8
[2020-08-28 11:28] VITALS: BP 98/47; PULSE 79; TEMP 98
[2020-08-28 12:00] LABS: COLLECTION METHOD CATHETER
[2020-08-28 12:16] LABS: PH 5 (5-8); SQUAMOUS EPITHELIAL 0-2 /hpf; URINE APPEARANCE Clear; URINE BACTERIA None Seen /hpf; URINE BILIRUBIN Negative (NEGATIVE); URINE BLOOD Negative (NEGATIVE); URINE COLOR Yellow; URINE GLUCOSE Negative (NEGATIVE); URINE KETONE Negative (NEGATIVE); URINE LEUKOCYTE ESTERASE Negative (NEGATIVE); URINE NITRATE Negative (NEGATIVE); URINE PROTEIN(semi-quant) Negative (NEGATIVE); URINE RBC 0-2 /hpf; URINE UROBILINOGEN Negative (NEGATIVE)
--- NOTE | 2020-08-28 12:18 | NUR ---
First visit from the mortgage closing clerk. No needs right now.
--- NOTE | 2020-08-28 14:01 | NUR ---
Fish Frog Or Oyster Farmer contacted Natacha at [facility] and faxed clinical updates. Natacha advised they would need an updated COVID test as patient's last negative was 08/23/20. SW collaborated with Hospitalist about this request. MIRA also confirmed that patient's DPOA-HC paperwork was placed in patient's chart. SW will continue to follow.
[2020-08-28 15:48] VITALS: BP 107/47; PULSE 71; TEMP 97.7
--- NOTE | 2020-08-28 18:40 | NUR ---
resting in chair, bedside shift report received from BALBIR Chandra
--- NOTE | 2020-08-28 18:49 | NUR ---
Patient resting in bedside recliner at this time. Patient remains alert and oriented. Patient up with x1, walker, and gaitbelt to bathroom several times, continent of urine. Denies needs at this time, call light within reach.
[2020-08-28 19:47] VITALS: BP 113/43; PULSE 66; TEMP 98.8
--- NOTE | 2020-08-28 22:00 | NUR ---
assisted up to bathroom and then back out and into recliner per her request, full assessment completed, see interventions for further info, has purple bruising to right buttocks and down right leg, left jaramillo with scabbing sores, denies needs at this time
[2020-08-28 23:45] VITALS: BP 121/63; PULSE 80; TEMP 98.8
--- NOTE | 2020-08-29 00:58 | NUR ---
remains in chair and this is where she prefers to be, repositioned for comfort
--- NOTE | 2020-08-29 02:37 | NUR ---
in recliner and appears to be dozing now, resp quiet and easy
[2020-08-29 03:18] VITALS: BP 113/39; PULSE 71; TEMP 98.3
--- NOTE | 2020-08-29 04:34 | NUR ---
assisted up to bathroom, c/o pain to pelvis while up and moving, medicated with hydrocodone 5mg 1 tab
[2020-08-29 06:43] LABS: BASO # 0.1 (0.0-0.2); BASO % 0.3 % (0.0-2.0); EOS # 0.2 (0.0-0.7); EOS % 1.2 % (0-4.0); GRAN # 13.8 (1.4-6.5); GRAN % 77.8 % (42.2-75.2); LYMPH % 11.3 % (20.0-51.0); MEAN CELL VOLUME 97 fl (80.0-100.0); MEAN CORPUSCULAR HGB CONC 34 g/dl (33.0-37.0); MEAN PLATELET VOLUME 9.7 fl (7.4-10.4); MONO # 1.5 (0.1-0.6); MONO % 8.3 % (1.7-9.3); PLATELET COUNT 272 K/mm3 (130-400); RED BLOOD COUNT 2.71 M/mm3 (4.10-5.30); REDCELL DISTRIBUTION WIDTH-CV 14.2 % (11.5-14.5)
[2020-08-29 06:44] LABS: HEMATOCRIT 26.3 % (37.0-47.0); HEMOGLOBIN 8.8 g/dl (12.5-16.0); MEAN CORPUSCULAR HEMOGLOBIN 32 pg (27.0-31.0)
[2020-08-29 06:56] LABS: CREATININE, serum 0.94 (0.52-1.25); POTASSIUM 4.1 mmol/L (3.4-5.0)
--- NOTE | 2020-08-29 07:02 | NUR ---
bedside shift report given to BALBIR Castano
[2020-08-29 07:40] VITALS: BP 118/52; PULSE 67; TEMP 97.9
[2020-08-29] MEDS ORDERED: NORCO 325 MG-51 TAB PO (09:03)
--- NOTE | 2020-08-29 10:00 | NUR ---
Patient alert and oriented, answers questions appropriately. See assessment. 2+ edema noted to BLE, pulses palpable. No numbness or tingling reported to BLE. No c/o at this time.
[2020-08-29 11:26] VITALS: BP 117/71; PULSE 78; TEMP 97.9
[2020-08-29 13:10] VITALS: BP 117/71; PULSE 78; TEMP 97.9
[2020-08-29 13:36] VITALS: BP 117/71; PULSE 78; TEMP 97.9
--- NOTE | 2020-08-29 13:40 | NUR ---
Main[place] Strip Inspector attended clinical rounds with the team and patient to discharge today. Patient's second COVID test came back negative. MIRA collaborated with Natacha from [facility] and set transport time for 1400. MIRA faxed discharge orders, clinical updates, and negative COVID results to Natacha. MIRA met with patient to provide transport time. SW read IM form aloud to patient who verbalized understanding and gave SW permission to sign on her behalf. SW placed form in patient's chart and provided copy to patient. No additional needs at this time.
[2020-08-29 13:49] VITALS: BP 117/71; PULSE 78; TEMP 97.9
--- NOTE | 2020-08-29 14:38 | NUR ---
Patient discharged to [facility] via wheelchair with transportation staff. Report called to Justine.
== END 2020-08-29 14:39 | DRG 552 ==
LOC: COL.ER 16:33 → SURG 18:54
PROVIDERS: Family Medicine; Hospitalist; Internal Medicine; Physician Assistant
DX: S32.19XA Other fracture of sacrum, initial encounter for closed fracture (principal); S32.512A Fracture of superior rim of left pubis, initial encounter for closed fracture; E87.2 Acidosis; E87.3 Alkalosis; S36.81XA Injury of peritoneum, initial encounter; E87.1 Hypo-osmolality and hyponatremia; I48.91 Unspecified atrial fibrillation; I10 Essential (primary) hypertension; R35.0 Frequency of micturition; S62.619A Displaced fracture of proximal phalanx of unspecified finger, initial encounter for closed fracture; M19.90 Unspecified osteoarthritis, unspecified site; F32.9 Major depressive disorder, single episode, unspecified; K59.00 Constipation, unspecified; K21.9 Gastro-esophageal reflux disease without esophagitis; W18.30XA Fall on same level, unspecified, initial encounter; D64.9 Anemia, unspecified; M54.2 Cervicalgia; Z79.01 Long term (current) use of anticoagulants; Y93.9 Activity, unspecified
CPT/HCPCS: OP; 99231-AI; 99232-AI; 99239; G0378; J0696; J3010; J3475; J7030; Q9967

== ENCOUNTER 2023-11-18 12:06 | Emergency (ER) | payer MEDICARE ==
[~2023-11-18] VITALS: Ht 149.9 cm; Wt 57.3 kg
[~2023-11-18 12:06] MED LIST changes: +ALDACTONE 25MG25 M1 PO; +AQUAPHOR BABY HEA41% TP; +BETAMETHASONE VA0.1% TP; +BLINK TEARS15 ML OP; +ELIQUIS 5MG PO; +GENTLE LAXATIVE10 MG RC; +GOOD NEIGH1200 MG/15 PO; +IMODIUM 2MG CAPS2 MG PO; +LANOXIN 0.120.125 MG PO; +LASIX 40MG TABL40 MG PO; +MYLANTA 150 ML150 M1 PO; +NYSTATIN100000 U/1 TOP; +REMERON 15M15 MG/TA1 PO; +SYSTANE BALANCE10 M1 OP; +TYLENOL 500MG500 MG PO; +ZESTRIL 10MG10 MG PO; +ZOFRAN ODT4 MG PO
[2023-11-18 12:15] VITALS: TEMP 98
[2023-11-18 13:49] VITALS: BP 136/79; PULSE 85
[2023-11-18] MEDS ORDERED: CEPHALEXIN500 M1 PO (18:03)
== END 2023-11-18 13:49 ==
LOC: COL.ER 12:06
DX: R04.0 Epistaxis (principal); I48.91 Unspecified atrial fibrillation; Z79.01 Long term (current) use of anticoagulants

== ENCOUNTER 2023-11-18 16:47 | Emergency (ER) | payer MEDICARE ==
[~2023-11-18] VITALS: Ht 149.9 cm; Wt 57.3 kg
[2023-11-18 16:49] VITALS: TEMP 97.8
[2023-11-18] MEDS ORDERED: CEPHALEXIN500 M1 PO (18:03)
[2023-11-18 18:18] VITALS: BP 130/72; PULSE 76
== END 2023-11-18 18:23 | disposition home or self-care (01) ==
LOC: COL.ER 16:47
DX: R04.0 Epistaxis (principal); Z79.01 Long term (current) use of anticoagulants

== ENCOUNTER 2023-12-25 13:58 | Emergency (ER) | payer MEDICARE ==
[~2023-12-25] VITALS: Ht 149.9 cm; Wt 55.5 kg
[~2023-12-25 13:58] MED LIST changes: +CEPHALEXIN500 M1 PO
[2023-12-25] MEDS ORDERED: Oxymetazoline 0.05% Nasal Spray 30 ML BOTTLE NS ONE (14:45)
[2023-12-25 15:48] VITALS: BP 102/65; PULSE 88; TEMP 98
== END 2023-12-25 15:18 | disposition home or self-care (01) ==
LOC: COL.ER 13:58
DX: R04.0 Epistaxis (principal); I48.91 Unspecified atrial fibrillation; Z79.01 Long term (current) use of anticoagulants

== ENCOUNTER 2024-06-26 09:31 | Emergency (ER) | payer MEDICARE ==
[~2024-06-26] VITALS: Ht 149.9 cm; Wt 50.9 kg
[2024-06-26 12:13] LABS: ARTERIAL BLD GAS O2 SATURATION 97.4 % (92-100); ARTERIAL BLD GAS TCO2 CT 37.6; ARTERIAL BLOOD GAS BASE EXCESS 7.8 (-2-2); ARTERIAL BLOOD GAS HCO3 35.6 meq/L (22-26); ARTERIAL BLOOD GAS PCO2 63.2 mmHg (35-45); ARTERIAL BLOOD GAS PO2 90.6 mmHg (80-100); ARTERIAL BLOOD GAS pH 7.37 (7.35-7.45)
[2024-06-26 14:28] VITALS: BP 112/60; PULSE 70
== END 2024-06-26 14:28 | disposition home or self-care (01) ==
LOC: COL.ER 09:31
PROVIDERS: Family Medicine
DX: S00.03XA Contusion of scalp, initial encounter (principal); S40.011A Contusion of right shoulder, initial encounter; Z79.01 Long term (current) use of anticoagulants; W01.10XA Fall on same level from slipping, tripping and stumbling with subsequent striking against unspecified object, initial encounter; Y92.129 Unspecified place in nursing home as the place of occurrence of the external cause

== ENCOUNTER 2024-06-27 06:19 | Emergency (ER) | payer MEDICARE ==
[~2024-06-27] VITALS: Ht 149.9 cm; Wt 50.9 kg
[2024-06-27 06:22] VITALS: TEMP 98.3
[2024-06-27 08:38] VITALS: BP 140/87; PULSE 72
== END 2024-06-27 08:39 | disposition home or self-care (01) ==
LOC: COL.ER 06:19
DX: S09.90XA Unspecified injury of head, initial encounter (principal); S00.01XA Abrasion of scalp, initial encounter; Z79.01 Long term (current) use of anticoagulants; W01.10XA Fall on same level from slipping, tripping and stumbling with subsequent striking against unspecified object, initial encounter

== ENCOUNTER → 2024-08-26 | Outpatient (REF) | payer MEDICARE ==
[2024-08-26 11:10] LABS: COLLECTION METHOD CLEAN CATCH
[2024-08-26 11:18] LABS: URINE APPEARANCE CLEAR (CLEAR/HAZY); URINE BLOOD NEGATIVE (NEGATIVE); URINE COLOR YELLOW (YELLOW); URINE GLUCOSE NEGATIVE (NEGATIVE); URINE KETONE NEGATIVE (NEGATIVE); URINE NITRATE NEGATIVE (NEGATIVE); URINE PROTEIN(semi-quant) NEGATIVE (NEGATIVE)
[2024-08-26 11:28] LABS: URINE BACTERIA OCCASIONAL /hpf (NONE SEEN); URINE RBC 0-2 /hpf (0-2)
== END ==
LOC: COL.LAB 10:53
PROVIDERS: Internal Medicine
DX: R30.0 Dysuria (principal)